=== PATIENT | female | born 1975 ===

== ENCOUNTER 2017-09-27 08:06 | Outpatient (CLI) | payer OTHER | END 2017-09-27 08:09 | disposition home or self-care (01) | LOC: SONOGRAMA 08:06 | DX: E04.8 Other specified nontoxic goiter (principal) ==

== ENCOUNTER 2018-01-26 06:50 | Day surgery (SDC) | payer OTHER ==
[~2018-01-26 06:50] MED LIST: SYNTHROID88 MCG PO
[2018-01-26] MEDS ORDERED: PERCOCET 5-3251 EACH PO (12:46)
== END 2018-01-26 14:50 | disposition home or self-care (01) ==
LOC: CIR.AMB 06:50
DX: C73 Malignant neoplasm of thyroid gland (principal)

== ENCOUNTER 2019-06-07 09:07 | Outpatient (CLI) | payer OTHER ==
[~2019-06-07 09:07] MED LIST changes: +PERCOCET 5-3251 EACH PO
== END 2019-06-07 09:21 | disposition home or self-care (01) ==
LOC: SONOGRAMA 09:07 → MAMO-SONO 10:15
DX: N84.0 Polyp of corpus uteri (principal)